=== PATIENT | male | born 1995 | race Caucasian/White ===

== ENCOUNTER 2016-09-21 01:14 | Emergency (ER) | payer OTHER ==
[~2016-09-21] VITALS: Ht 170.2 cm; Wt 63.9 kg
[2016-09-21 01:17] VITALS: BP 124/77
[2016-09-21] MEDS ORDERED: VALACYCLOVIR1000 MG PO (01:47)
[2016-09-21] MEDS ORDERED: VIBRAMYCIN100 MG PO (01:47)
== END 2016-09-21 02:07 | disposition home or self-care (01) ==
LOC: EME 01:14
DX: L73.9 Follicular disorder, unspecified (principal)
CPT/HCPCS: 87254; 99281; 99282